=== PATIENT | male | born 1980 | race Caucasian/White ===

== ENCOUNTER 2017-04-21 17:50 | Emergency (ER) | payer SELFPAY ==
--- NOTE | 2017-04-21 18:49 | ED ---
Upper Extremity Pain - HPI Summary HPI Summary: 36M presents with right hand injury yesterday. He punched a wall. He had normal xray but had ball of tissue he describes as in palm so potential has ligament damage. He admits to increase swelling and bruising. no numbness or tingling. he has been keeping is elevated but also went to work and was using his hand as he is right handed. he did not take ibuprofen or place ice on the area. pain is 3/10. he did take any oxy prior to coming. - History of Current Complaint Chief Complaint: EDExtremityUpper Stated Complaint: RT HAND INJURY-HERE YESTERDAY Time Seen by Provider: 04/21/17 18:13 - Allergies/Home Medications Allergies/Adverse Reactions: Allergies Allergy/AdvReac Type Severity Reaction Status Date / Time No Known Allergies Allergy Verified 04/21/17 18:04 PMH/Surg Hx/FS Hx/Imm Hx Endocrine/Hematology History: Denies: Hx Diabetes Cardiovascular History: Denies: Hx Myocardial Infarction - Surgical History Surgery Procedure, Year, and Place: N/A Infectious Disease History: No Infectious Disease History: Denies: Traveled Outside the [place] in Last 30 Days - Family History Known Family History: Positive: Cardiac Disease, Hypertension, Other - Cancer - Social History Alcohol Use: Occasionally Hx Substance Use: Yes Substance Use Type: Reports: Marijuana Hx Tobacco Use: Yes Smoking Status (MU): Former Smoker Review of Systems Negative: Fever Negative: Chest Pain Negative: Shortness Of Breath Positive: Edema - right hand All Other Systems Reviewed And Are Negative: Yes Physical Exam Triage Information Reviewed: Yes Vital Signs On Initial Exam: Initial Vitals Temp Pulse Resp BP Pulse Ox 98.6 F 89 18 143/93 98 04/21/17 17:56 04/21/17 17:56 04/21/17 17:56 04/21/17 17:56 04/21/17 17:56 Vital Signs Reviewed: Yes Appearance: Positive: Well-Appearing Skin: Positive: Warm, Dry Head/Face: Positive: Normal Head/Face Inspection Eyes: Positive: Normal, Conjunctiva Clear Respiratory/Lung Sounds: Positive: Clear to Auscultation, Breath Sounds Present Cardiovascular: Positive: Normal, RRR Musculoskeletal: Positive: Strength/ROM Intact - right thumb, 1-2 finger, Edema Right - moderate edema of palm, mild edema of fingers, capillary refill<2 secs, sensation grossly intact, ecchymosis of palm noted Psychiatric: Positive: Normal - Fabiana Coma Scale Coma Scale Total: 15 Diagnostics - Vital Signs Vital Signs Temp Pulse Resp BP Pulse Ox 04/21/17 17:56 98.6 F 89 18 143/93 98 - Laboratory Lab Statement: Any lab studies that have been ordered have been reviewed, and results considered in the medical decision making process. Course/Dx - Course Course Of Treatment: 36M presents with right hand injury yesterday. He punched a wall. He had normal xray but had ball of tissue he describes as in palm so potential has ligament damage. He admits to increase swelling and bruising. no numbness or tingling. he has been keeping is elevated but also went to work and was using his hand as he is right handed. he did not take ibuprofen or place ice on the area. pain is 3/10. he did take any oxy prior to coming. on exam ecchymosis and edema of palm, capillary refill<2 secs, sensation grossly intact. explained that needs to follow RICE to decrease swelling and swelling and bruising is normal. has follow up tomorrow with ortho. patient understand and agrees with plan. - Diagnoses Differential Diagnosis/HQI/PQRI: Positive: Fracture (Closed), Strain, Sprain Provider Diagnoses: Injury of hand, right Discharge - Discharge Plan Condition: Good Disposition: HOME Patient Education Materials: RICE Therapy (ED) Referrals: No Primary Care Phys,NOPCP [Primary Care Provider] - Additional Instructions: Keep extremity elevate Place ice 20 mins on 20 off directly on splint move other fingers throughout day Take ibuprofen every 6 hours for pain Follow up with ortho Return to ED if develop any numbness or tingling or any new or worsening symptoms
[2017-04-21 19:00] VITALS: BP 132/79
== END 2017-04-21 18:59 | disposition home or self-care (01) ==
LOC: ED 17:50
DX: S69.91XA Unspecified injury of right wrist, hand and finger(s), initial encounter (principal); W22.8XXA Striking against or struck by other objects, initial encounter; Y92.9 Unspecified place or not applicable; Z87.891 Personal history of nicotine dependence
CPT/HCPCS: 99281

== ENCOUNTER 2017-04-28 06:17 | Day surgery (SDC) | payer SELFPAY ==
[~2017-04-28 06:17] MED LIST: Buffered Lidocaine 0.9% SYRIN* 5 ML/SYR SYRINGE INTRADERM ONE; Dexamethasone IV* 4 MG/ML 1 ML (4 MG) IV SLOW PU ONE; Famotidine IV* 10 MG/ML 2 ML (20 mg) IV ONE
[2017-04-28] MEDS ORDERED: Buffered Lidocaine 0.9% SYRIN* 5 ML/SYR SYRINGE ONE (06:57)
[2017-04-28] MEDS ORDERED: ceFAZolin 2 GM PREMIX (*) 2 GM/50 ML BAG IVPB ONE (06:57)
[2017-04-28] MEDS ORDERED: Famotidine IV* 10 MG/ML 2 ML (20 mg) ONE (07:27)
[2017-04-28] MEDS ORDERED: Dexamethasone IV* 4 MG/ML 1 ML (4 MG) ONE (07:28)
[2017-04-28] MEDS ORDERED: fentaNYL* 50 MCG/ML 2 ML VIAL (100 MCG VIAL) ONE ×4 (09:50→13:08)
[2017-04-28] MEDS ORDERED: Midazolam* 1 MG/ML 5 ML VIAL (5 MG) ONE (09:50)
[2017-04-28] MEDS ORDERED: PROCHLORPERAZINE INJ 5 MG/ML 2 ML VIAL IV PRN (09:53)
[2017-04-28] MEDS ORDERED: HYDROcodone/ACETAMIN 5-325 MG* 1 TAB PO PRN (09:53)
[2017-04-28] MEDS ORDERED: Propofol* 10 MG/ML 20 ML BTL IV PUSH ONE (09:57)
[2017-04-28] MEDS ORDERED: Lidocaine 2% PF * 5 ML VIAL ONE (09:57)
[2017-04-28] MEDS ORDERED: Ketorolac INJ* 30 MG/ML 1 ML VIAL ONE (10:22)
[2017-04-28] MEDS ORDERED: Bupivacaine 0.25% SDV* 30 ML ONE (10:37)
[2017-04-28] MEDS ORDERED: Ondansetron INJ* 2 MG/ML VIAL ONE (11:00)
[2017-04-28] MEDS ORDERED: oxyCODONE/Acetamin 5/325 MG* TAB ONE (12:27)
[2017-04-28] MEDS: oxyCODONE/Acetamin 5/325 MG* TAB PO PRN ×2 (12:28→12:29)
[2017-04-28] MEDS: fentaNYL* 50 MCG/ML 2 ML VIAL (100 MCG VIAL) IV PRN ×4 (12:30→13:22)
[2017-04-28 14:02] VITALS: BP 155/89
--- NOTE | 2017-04-28 21:50 | RAD ---
INDICATION: Traumatic fracture right hand operative reduction and internal fixation. COMPARISON: Comparison is made with a prior CT of the right wrist from April 23, 2017. TECHNIQUE: 31.5 seconds of intermittent fluoroscopic guidance were provided and 12 spot films of the right wrist were obtained in the operating room. FINDINGS: The films demonstrate placement of multiple screws transfixing the comminuted fracture of the hamate bone. There is also a K wire present which projects overlying the medial aspect of the hamate bone and fifth metacarpal. IMPRESSION: INTRAOPERATIVE CONTROL FILMS. CPT II Codes: 6045F
--- NOTE | 2017-04-29 01:54 | OP ---
DATE OF OPERATION: 04/28/[address] [facility] DATE OF : 76 SURGEON: Yoni Lemus MD ONLINE SERVICES MANAGER: ELIZABETH Saul. An perioperative assistant was needed for the entirety of the procedure to aid in positioning of the arm and retraction. ANESTHESIOLOGIST: Dr. Mary Chamberlain. ANESTHESIA: General. PRE-OP DIAGNOSIS: Right hamate fracture with 4th and 5th carpometacarpal fracture dislocations. POST-OP DIAGNOSIS: Right hamate fracture with 4th and 5th carpometacarpal fracture dislocations. OPERATIVE PROCEDURES: 1. Open reduction internal fixation, right hamate intraarticular body fracture. 2. Percutaneous pinning of right 4th carpometacarpal fracture dislocation. INDICATIONS: Silver had a punching injury and had severe injury to the ulnar side of the hand. We had talked about risks and benefits. He wanted to proceed. ESTIMATED BLOOD LOSS: 5 mL. COMPLICATIONS: None. FINDINGS: As expected. Even after fixation of the hamate, there was some dorsal subluxation of the 4th carpometacarpal joint and so this necessitated a pin. DESCRIPTION OF PROCEDURE: Silver was seen in the preoperative holding area. The correct side, site, and procedure were identified. We came back to the operating room. The arm was prepped and draped in the usual fashion. Time-out was performed. I began by making a lazy-S incision centered over the hamate. Dissection was carried down longitudinally and full-thickness flaps were raised off of the peritenon. The interval between the 4th and 5th dorsal compartment extensor tendons was developed to take us down to the hamate. Subperiosteal flaps were raised off of the hamate. The fracture was booked open and all of the hematoma and soft tissue interpose between the bony fragments was excised. Once I had the fracture debrided, there was a more proximal large dorsal body piece and then a transverse fracture a distal dorsal body piece. Both fragments were reduced and pinned with a 2.6 mm K-wire of the Synthes variable angle handset. I then placed a combination of 1.3 and 1.5 mm lag screws to secure the alignment of the fragments. This generated excellent compression across the fractures. The reduction was excellent. I then went ahead and checked the stability. The 5th carpometacarpal joint felt stable. The 4th carpometacarpal joint still had dorsal subluxation inducible, so I went ahead and placed a pin across the base of the 4th metacarpal and down into the hamate body. The 4th carpo-metacarpal joint was now nicely secured. I went ahead and closed the deep layer with 4-0 Vicryl suture. The skin was closed with 4-0 nylon suture. The wounds were infiltrated with 0.25% plain Marcaine. The pin was bent and clipped and a pin cap was placed. Wounds and the pin were dressed with Xeroform, 4x4's, sterile Webril, and dorsal and volar slabs were used to apply splint. Tourniquet was deflated. The hand pinked up immediately. He was taken to the recovery room in stable condition. [id number]/[facility] #: [id number] BRICE
== END 2017-04-28 14:21 | disposition home or self-care (01) ==
LOC: OR 06:17
PROVIDERS: ATTEND Orthopaedic Surgery Hand Surgery
DX: S62.141A Displaced fracture of body of hamate [unciform] bone, right wrist, initial encounter for closed fracture (principal); S62.304A Unspecified fracture of fourth metacarpal bone, right hand, initial encounter for closed fracture; S62.336A Displaced fracture of neck of fifth metacarpal bone, right hand, initial encounter for closed fracture; W22.8XXA Striking against or struck by other objects, initial encounter; Y92.9 Unspecified place or not applicable; Z87.891 Personal history of nicotine dependence
CPT/HCPCS: 76000; A9270-GY; C1713; J0690; J1100; J1885; J2250; J2405; J2704; J3010

== ENCOUNTER 2018-02-09 16:00 | Emergency (ER) | payer OTHER ==
[2018-02-09] MEDS ORDERED: NS 0.9% 1000 ML* 2,000 ML IV ONE (16:37)
[2018-02-09 17:04] LABS: ABS Basophils 0.2 10^3/ul (0-0.2); ABS Eosinophils 0.2 10^3/ul (0-0.6); ABS Lymphocytes 1.6 10^3/ul (1.0-4.8); ABS Monocytes 1.2 10^3/ul (0-0.8); ABS Neutrophils 12.5 10^3/ul (1.5-7.7); ABS Nucleated RBC 0 10^3/ul; Eosinophil % 1.1 % (0-6); Hematocrit 43 % (42-52); Hemoglobin 14.8 g/dl (14.0-18.0); Lymphocyte % 10.4 % (25-47); Mean Corpuscular HGB Conc 35 g/dl (31-36); Mean Corpuscular Hemoglobin 34 pg (27-31); Mean Corpuscular Volume 96 fL (80-94); Mean Platelet Volume 7.8 um3 (7.4-10.4); Nucleated Red Blood Cells % 0; Platelet Count 234 10^3/ul (150-450); Red Blood Count 4.42 10^6/ul (4.00-5.40); Red Cell Distribution Width 13 % (10.5-15); White Blood Count 15.6 10^3/ul (3.5-10.8)
[2018-02-09] MEDS ORDERED: Cyclobenzaprine TAB* 10 MG ONE (17:10)
--- NOTE | 2018-02-09 17:10 | ED ---
Complex/Multi-Sys Presentation - HPI Summary HPI Summary: Pt is a 37 y/o male who presents to [facility] c/o muscle cramps. He states after working in the sun all day, he began to feel faint and all his muscles began to cramp severely. The pain is described as a 5/10 in severity, intermittent, and cramping. He also c/o tingling in his face and arms, and states his limbs feel heavy. Movement makes the pain worse. He states his muscles cramp easily due to overworking them, but he usually stays well-hydrated. Today he just had Muscle Milk. He denies any CP, and has HTN. - History Of Current Complaint Chief Complaint: EDDizziness Time Seen by Provider: 02/09/18 16:34 Hx Obtained From: Patient Onset/Duration: Gradual Onset, Lasting Hours, Still Present Timing: Intermittent, Lasting: Character: Dull - Cramping Aggravating Factor(s): Not drinking or eating Associated Signs And Symptoms: Positive: Weakness, Other - Tingling, muscle cramps. Negative: Chest Pain - Allergies/Home Medications Allergies/Adverse Reactions: Allergies Allergy/AdvReac Type Severity Reaction Status Date / Time No Known Allergies Allergy Verified 02/09/18 16:28 Home Medications: Home Medications Lisinopril TAB* [Prinivil TAB*] 20 mg PO DAILY 02/09/18 [History Confirmed 02/09] PMH/Surg Hx/FS Hx/Imm Hx Endocrine/Hematology History: Denies: Hx Diabetes Cardiovascular History: Reports: Hx Hypertension - no meds Denies: Hx Myocardial Infarction Musculoskeletal History: Reports: Hx Arthritis Sensory History: Reports: Hx Contacts or Glasses - both - glasses day of surgery Denies: Hx Hearing Aid Opthamlomology History: Reports: Hx Contacts or Glasses - both - glasses day of surgery - Cancer History Hx Chemotherapy: No - Surgical History Surgery Procedure, Year, and Place: N/A - Immunization History Immunizations Up to Date: Yes Infectious Disease History: No Infectious Disease History: Denies: Traveled Outside the [place] in Last 30 Days - Family History Known Family History: Positive: Cardiac Disease, Hypertension, Other - Cancer - Social History Alcohol Use: Occasionally Hx Substance Use: Yes Substance Use Type: Reports: Marijuana Substance Use Comment - Amount & Last Used: smokes at night end of day if does Hx Tobacco Use: Yes Smoking Status (MU): Former Smoker Amount Used/How Often: smoked for 10 years, approx 1ppd Review of Systems Positive: Fatigue Negative: Chest Pain Positive: Other - Muscle cramps Neurological: Other - Limbs feel heavy Positive: Paresthesia - Face and arms All Other Systems Reviewed And Are Negative: Yes Physical Exam - Summary Physical Exam Summary: GENERAL: Patient is a well developed and nourished M who is lying uncomfortable in the stretcher secondary to diffuse muscle spasms. Patient is not in any acute respiratory distress. HEAD AND FACE: Normocephalic EYES: PERRLA, EOMI x 2. EARS: Hearing grossly intact. MOUTH: Oropharynx within normal limits. NECK: Supple, trachea is midline, no adenopathy, no JVD, no carotid bruit. CHEST: Symmetric, no tenderness at palpation LUNGS: Clear to auscultation bilaterally. No wheezing or crackles. CVS: Regular rate and rhythm, S1 and S2 present, no murmurs or gallops appreciated. ABDOMEN: Soft, non-tender. Bowel sounds are normal. No abdominal abnormal pulsations. EXTREMITIES: Full ROM in all major joints, no edema, no cyanosis or clubbing. NEURO: Alert and oriented x 3. No acute neurological deficits. Speech is normal and follows commands. SKIN: Dry and warm Triage Information Reviewed: Yes Vital Signs On Initial Exam: Initial Vitals Temp Pulse Resp BP Pulse Ox 96.9 F 105 20 122/94 99 02/09/18 16:05 02/09/18 16:05 02/09/18 16:05 02/09/18 16:05 02/09/18 16:05 Vital Signs Reviewed: Yes Diagnostics - Vital Signs Vital Signs Temp Pulse Resp BP Pulse Ox 02/09/18 16:05 96.9 F 105 20 122/94 99 - Laboratory Result Diagrams: 02/09/18 16:54 02/09/18 16:54 Lab Statement: Any lab studies that have been ordered have been reviewed, and results considered in the medical decision making process. - EKG 16:50 Cardiac Rate: Tachycardia - 102 bpm EKG Rhythm: Sinus Rhythm EKG Interpretation: Benign early repolarization Complex Multi-Symp Course/Dx Course Of Treatment: Pt is a 37 y/o male who presents to [facility] c/o muscle cramps. He states after working in the sun all day, he began to feel faint and all his muscles began to cramp severely. The pain is described as a 5/10 in severity, intermittent, and cramping. He also c/o tingling in his face and arms , and states his limbs feel heavy. Movement makes the pain worse. He states his muscles cramp easily due to overworking them, but he usually stays well- hydrated. Today he just had Muscle Milk. He denies any CP, and has HTN. A physical exam revealed the patient uncomfortable due to muscle spasms. An EKG revealed tachycardia at 102 bpm and Benign early repolarization. Final dx is acute kidney injury. Pt is leaving AMA, and is given strict return precautions. - Diagnoses Provider Diagnoses: Acute kidney injury Discharge - Sign-Out/Discharge Documenting (check all that apply): Patient Departure - AMA - Discharge Plan Condition: Stable Disposition: AGAINST MEDICAL ADVICE Patient Education Materials: Acute Kidney Injury (DC) Referrals: [facility] [Outside] - 3 Days Additional Instructions: RETURN TO THE EMERGENCY DEPARTMENT FOR CHANGING OR WORSENING SYMPTOMS. - Billing Disposition and Condition Condition: STABLE Disposition: Against Medical Advice - Attestation Statements Document Initiated by Scribe: Yes Documenting Scribe: Jovana Espinoza Provider For Whom Scribe is Documenting (Include Credential): Tomi Arguello MD Scribe Attestation: Jovana Mistry, scrsantoshed for Tomi Arguello MD on 02/13/18 at 1732. Scribe Documentation Reviewed: Yes Provider Attestation: The documentation as recorded by the scribeJovana accurately reflects the service I personally performed and the decisions made by me, Tomi Arguello MD
[2018-02-09] MEDS ORDERED: Cyclobenzaprine TAB* 10 MG PO ONE (17:12)
[2018-02-09 17:25] LABS: EGFR Non-African American 39.7 (>60)
[2018-02-09] MEDS ORDERED: Magnesium Sulfate IV* 2 GM in NS 0.9% 100 ML* 100 ML IV ONE (18:57)
[2018-02-09] MEDS ORDERED: Potassium & Sodium Phos 250MG* = 1 PACKET PO ONE (19:01)
[2018-02-09 19:02] LABS: Urine Appearance Cloudy; Urine Blood Negative (Negative); Urine Color Yellow; Urine Ketones Negative (Negative); Urine Protein 1+(30 mg/dL) (Negative); Urine Red Blood Cell 1+(3-5/hpf) (Absent); Urine Specific Gravity 1.012 (1.010-1.030); Urine Urobilinogen Negative (Negative); Urine White Blood Cell Trace(0-5/hpf) (Absent)
[2018-02-09] MEDS ORDERED: Magnesium Sulfate 2 GM IV (Premix) IVPB ONE (20:00)
[2018-02-09 20:48] VITALS: BP 144/84
--- NOTE | 2018-02-10 07:14 | RAD ---
INDICATION: Shortness of breath. COMPARISON: There are no relevant prior studies available for comparison. The exam is slightly limited the left costophrenic angle is cut off on the film. TECHNIQUE: A portable view of the chest was obtained. FINDINGS: Cardiac and mediastinal contours appear to be within normal limits. The lungs are clear. No pleural effusion is seen. IMPRESSION: NO EVIDENCE FOR ACUTE DISEASE. R1
== END 2018-02-09 20:49 | disposition left against medical advice (07) ==
LOC: ED 16:00
DX: N17.9 Acute kidney failure, unspecified (principal); R21 Rash and other nonspecific skin eruption; R50.9 Fever, unspecified; R53.1 Weakness; R53.83 Other fatigue; Z87.891 Personal history of nicotine dependence; R20.0 Anesthesia of skin
CPT/HCPCS: 36415; 71045; 80053; 81003; 81015; 82550; 83605; 83735; 84100; 84484; 85025; 87086; 93005; 99281; A9270-GY; J3475